=== PATIENT | female | born 1995 | race Two or more races ===

== ENCOUNTER 2016-06-18 21:09 | Emergency (ER) | payer MEDICAID, OTHER ==
[2016-06-18 21:10] VITALS: BMI 32.1
[2016-06-18 21:24] VITALS: TEMP 98.9
[2016-06-18 21:38] LABS: AUTOMATED BASOPHIL 0.1 % (0-2); AUTOMATED EOSINOPHIL 1.2 % (0-5); AUTOMATED LYMPH 9.5 % (17-44); AUTOMATED MONOCYTE 7.2 % (3-10); MPV 8.3 fL (7.4-10.4)
[2016-06-18 21:46] LABS: BLOOD UREA NITROGEN 14 MG/DL (7-17); CALCIUM 9.7 MG/DL (8.4-10.2); CALCULATED OSMOLALITY 269 MOs/Kg (270-290); CHLORIDE 103 mEq/L (98-107); GLUCOSE 100 MG/DL (70-99); SODIUM LEVEL 139 mEq/L (137-146); TOTAL PROTEIN 7.4 G/DL (6.3-8.2)
[2016-06-18 23:08] LABS: LEUKOCYTES/URINE NEG (NEGATIVE); NITRITE/URINE NEG (NEGATIVE); URINE OCCULT BLOOD NEG (NEG/TRACE)
[2016-06-18 23:15] LABS: WBC/URINE 0-2 (0-5)
[2016-06-18] MEDS ORDERED: PROMETHAZINE 25 MG/ML VIAL IV ONE (23:18)
[2016-06-18] MEDS: NS 1,000 ML IV SCH (23:46)
--- NOTE | 2016-06-19 00:06 | EDPRACDOC ---
- General Information Chief Complaint: Flu-Like Symptoms Stated Complaint: NAUSEATED CHILLS VOMITING FEVER HEADACHE Time Seen by Provider: 06/18/16 23:04 Information Source: Patient Mode Of Arrival: Car Home Medications: Home Medications Ibuprofen [Ibuprofen Ib] 400 mg PO .ONCE 06/18/16 Ondansetron HCl [Zofran] 4 mg PO .ONCE 06/18/16 Azithromycin [Zithromax] 250 mg PO DAILY #6 tablet 06/19/16 Promethazine HCl [Phenergan] 25 mg IL Q8H PRN #12 supp 06/19/16 Promethazine [Phenergan] 25 mg PO Q6-8H PRN #20 tab 06/19/16 Allergies/Adverse Reactions: Allergies Allergy/AdvReac Type Severity Reaction Status Date / Time No Known Allergies Allergy Verified 02/18/16 03:58 - History of Present Illness Onset: one day HPI: PT PRESENTS TODAY WITH N/V/D THAT BEGAN LAST NIGHT. PT STATES THAT SHE WENT TO EAT AT A [employer] AND BEGAN WITH THE ABOVE SYMPTOMS SHORTLY AFTERWARDS. THE REST OF THE FAMILY IS ALSO AT HOME WITH SAME S/S AFTER INGESTING THE SAME TACOS. NO OTHER S/S REPORTED. PT STATES SHE WAS TAKING SONS ZOFRAN AT HOME W/ OUT RELIEF. NO BLOOD IN STOOL/VOMIT. Symptoms Occured: Reports: After Eating Duration: Reports: Episodes of Vomiting Emesis: Reports: Food Particles Recent: Reports: Ingestion of spoiled food Pain Quality: Reports: Cramping Pain Severity: Mild Pain Location: Reports: Diffuse History of: Denies: UTI, Ectopic, PID, Urolithiasis Relevant History of: Reports: None Associated Signs & Symptoms: Reports: Nausea, Vomiting, Diarrhea Oral Intake: Decreased Urinary Output: Decreased ED Past Medical History - History Reviewed Yes Nurses notes reviewed and agree except as marked - Patient Medical History Cardiac History: Reports: Hypercholesterolemia GI/ History: Denies: Urinary Tract Infection Psychological History: Denies: Depression Systemic History: Denies: Cancer Additional Past Medical History: CONSTIPATION Surgical History: Denies: Hysterectomy - Family Medical History Reports: Diabetes (mgm) - Social Medical History Smoking Status: Never smoker EDM Review of Systems - Review of Systems ROS Negative Except as Marked: Yes All systems reviewed and were negative except as marked Constitutional: No Symptoms Reported Respiratory: No Symptoms Reported Cardiovascular: No Symptoms Reported Gastrointestinal: Diarrhea, Nausea, Pain, Vomiting Genitourinary: No Symptoms Reported Neurological: No Symptoms Reported Musculoskeletal: No Symptoms Reported Integumentary: No Symptoms Reported - Physical Exam Constitutional: Alert (Awake), No apparent distress Oriented to: Time, Person, Place Last recorded Vital Signs: Last Vital Signs Temp 98.9 F 06/18/16 21:21 Pulse 143 H 06/18/16 21:21 Resp 20 06/18/16 21:21 BP 176/79 06/18/16 21:21 Pulse Ox 97 06/18/16 21:21 Oxygen Pulse Oxygen Saturation 97 O2 Device Room Air Oxygen Flow Rate Fraction of Inspired Oxygen ( FIO2) - HEENT Head: Normal Eye Exam: Normal Oropharynx: Normal Neck: Normal, Denies Pain, Midline - Respiratory/Cardiovascular Respiratory: Normal - CTA Cardiovascular: Tachycardia - GI Auscultation: Decreased Palpation: Normal Tenderness: Diffuse, Moderate - Musculoskeletal Back: Normal Extremities: Normal - Integumentary Skin: Normal Lymphatics: Normal - Neurologic Cerebellar: Normal Mood Description: Normal Thought: Coherent Perception: Normal - Re-evaluation Re-evaluation 1 Re-evaluation Time: :17 PT STATES SHE FEELS BETTER. UNABLE TO OBTAIN STOOL SAMPLE HERE. WILL EMPIRICALLY TREAT. - Results 06/18/16 21:25 06/18/16 21:25 WBC 15.1 xk/uL (3.8-10.8) H 06/18/16 21:25 RBC 4.87 xM/uL (4.20-5.40) 06/18/16 21:25 Hgb 13.2 g/dL (12.0-16.0) 06/18/16 21:25 Hct 39.0 % (36-47) 06/18/16 21:25 MCV 80 fL (81-99) L 06/18/16 21:25 MCH 27.1 pg (27-32) 06/18/16 21:25 MCHC 33.9 g/dl (33-36) 06/18/16 21:25 RDW 12.7 % (11.5-14.5) 06/18/16 21:25 Plt Count 227 xk/uL (130-400) 06/18/16 21:25 MPV 8.3 fL (7.4-10.4) 06/18/16 21:25 Neut % (Auto) 82.0 % (45-76) H 06/18/16 21:25 Lymph % (Auto) 9.5 % (17-44) L 06/18/16 21:25 [place] % (Auto) 7.2 % (3-10) 06/18/16 21:25 Eos % (Auto) 1.2 % (0-5) 06/18/16 21:25 Baso % (Auto) 0.1 % (0-2) 06/18/16 21:25 Absolute Neuts (auto) 12.38 xk/uL (1.7-8.2) H 06/18/16 21:25 Absolute Lymphs (auto) 1.36 xk/uL (0.65-4.75) 06/18/16 21:25 Sodium 139 mEq/L (137-146) 06/18/16 21:25 Potassium 3.9 mEq/L (3.5-5.1) 06/18/16 21:25 Chloride 103 mEq/L (98-107) 06/18/16 21:25 Carbon Dioxide 22 mMOL/L (22-33) 06/18/16 21:25 Anion Gap 18 mEq/L (8-16) H 06/18/16 21:25 BUN 14 MG/DL (7-17) 06/18/16 21:25 Creatinine 0.40 MG/DL (0.52-1.04) L 06/18/16 21:25 Estimated GFR (MDRD) > 60 mL/min (>=60) 06/18/16 21:25 Glucose 100 MG/DL (70-99) H 06/18/16 21:25 Calculated Osmolality 269 MOs/Kg (270-290) L 06/18/16 21:25 Calcium 9.7 MG/DL (8.4-10.2) 06/18/16 21:25 Total Bilirubin 0.7 MG/DL (0.2-1.3) 06/18/16 21:25 AST 26 IU/L (14-36) 06/18/16 21:25 ALT 45 IU/L (9-52) 06/18/16 21:25 Alkaline Phosphatase 116 IU/L (38-126) 06/18/16 21:25 Total Protein 7.4 G/DL (6.3-8.2) 06/18/16 21:25 Albumin 4.1 G/DL (3.5-5.0) 06/18/16 21:25 Lipase 80 U/L (23-300) 06/18/16 21:25 Urine Color Yellow 06/18/16 21:25 Urine Clarity Hazy 06/18/16 21:25 Urine pH 6.0 (5.0-8.0) 06/18/16 21:25 Ur Specific [place] 1.010 06/18/16 21:25 Urine Protein 1+ (NEG/TRACE) H 06/18/16 21:25 Urine Glucose (UA) Neg (NEGATIVE) 06/18/16 21:25 Urine Ketones 1+ (NEGATIVE) H 06/18/16 21:25 Urine Occult Blood Neg (NEG/TRACE) 06/18/16 21:25 Urine Nitrite Neg (NEGATIVE) 06/18/16 21:25 Urine Bilirubin Neg (NEGATIVE) 06/18/16 21:25 Urine Urobilinogen 0.2 MG/DL (0-1) 06/18/16 21:25 Ur Leukocyte Esterase Neg (NEGATIVE) 06/18/16 21:25 Urine WBC 0-2 (0-5) 06/18/16 21:25 Ur Epithelial Cells 3+ 06/18/16 21:25 Urine Bacteria Few (NEG/FEW) 06/18/16 21:25 Urine Mucus Occ (NEG/OCC) 06/18/16 21:25 Urine Test Neg (NEGATIVE) 06/18/16 21:25 Microbiology 06/18/16 23:15 Influenza Type A Antigen Screen - Final N/P - Naso/Pharyngeal NEGATIVE Please note: A NEGATIVE result does not exclude an influenza virus infection. It is a presumptive result and, if required, confirmation should be done using either a virus culture or an FDA-cleared influenza A&B molecular assay. ("NORMAL" value = "NEGATIVE".) Influenza Type B Antigen Screen - Final NEGATIVE Please note: A NEGATIVE result does not exclude an influenza virus infection. It is a presumptive result and, if required, confirmation should be done using either a virus culture or an FDA-cleared influenza A&B molecular assay. ("NORMAL" value = "NEGATIVE".) Lab Results 06/18/16 06/18/16 06/18/16 21:25 21:25 21:25 WBC 15.1 H RBC 4.87 Hgb 13.2 Hct 39.0 MCV 80 L MCH 27.1 MCHC 33.9 RDW 12.7 Plt Count 227 MPV 8.3 Neut % (Auto) 82.0 H Lymph % (Auto) 9.5 L [place] % (Auto) 7.2 Eos % (Auto) 1.2 Baso % (Auto) 0.1 Absolute Neuts (auto) 12.38 H Absolute Lymphs (auto) 1.36 Sodium Potassium Chloride Carbon Dioxide Anion Gap BUN Creatinine Estimated GFR (MDRD) Glucose Calculated Osmolality Calcium Total Bilirubin AST ALT Alkaline Phosphatase Total Protein Albumin Lipase Urine Color Yellow Urine Clarity Hazy Urine pH 6.0 Ur Specific [place] 1.010 Urine Protein 1+ H Urine Glucose (UA) Neg Urine Ketones 1+ H Urine Occult Blood Neg Urine Nitrite Neg Urine Bilirubin Neg Urine Urobilinogen 0.2 Ur Leukocyte Esterase Neg Urine WBC 0-2 Ur Epithelial Cells 3+ Urine Bacteria Few Urine Mucus Occ Urine Test Neg 06/18/16 21:25 WBC RBC Hgb Hct MCV MCH MCHC RDW Plt Count MPV Neut % (Auto) Lymph % (Auto) [place] % (Auto) Eos % (Auto) Baso % (Auto) Absolute Neuts (auto) Absolute Lymphs (auto) Sodium 139 Potassium 3.9 Chloride 103 Carbon Dioxide 22 Anion Gap 18 H BUN 14 Creatinine 0.40 L Estimated GFR (MDRD) > 60 Glucose 100 H Calculated Osmolality 269 L Calcium 9.7 Total Bilirubin 0.7 AST 26 ALT 45 Alkaline Phosphatase 116 Total Protein 7.4 Albumin 4.1 Lipase 80 Urine Color Urine Clarity Urine pH Ur Specific [place] Urine Protein Urine Glucose (UA) Urine Ketones Urine Occult Blood Urine Nitrite Urine Bilirubin Urine Urobilinogen Ur Leukocyte Esterase Urine WBC Ur Epithelial Cells Urine Bacteria Urine Mucus Urine Test Decision Time to Discharge: 01:18 - Departure Disposition: Home Condition: Improved Final Diagnosis: Nausea vomiting and diarrhea Instructions: Acute Nausea and Vomiting (ED) Education/Counseling Given To: Patient Education/Counseling Given Regarding: Diagnosis, Treatment, Follow Up Referrals: Kizzy Perez MD [Primary Care Provider] - One Week Prescriptions: Azithromycin [Zithromax] 250 mg PO DAILY #6 tablet Promethazine [Phenergan] 25 mg PO Q6-8H PRN #20 tab PRN Reason: Nausea/Vomiting Promethazine HCl [Phenergan] 25 mg IL Q8H PRN #12 supp PRN Reason: Nausea/Vomiting Additional Instructions: Drink sips of Gatorade every 2-3 minutes while awake. Do NOT drink large volumes of fluid at once. If you vomit, take the nausea-vomiting medicine prescribed, wait ~ 30 minutes, and restart the sipping process. Return to the Emergency Department if you think you are getting dehydrated, have persistent abdominal pain that is unrelenting, have worse or different symptoms, or any concerns.
[2016-06-19] MEDS: NS 1,000 ML IV SCH (01:26)
[2016-06-19 01:28] VITALS: BP 123/78; PULSE 104
== END 2016-06-19 01:38 | disposition home or self-care (01) ==
LOC: ED 21:09
DX: R11.2 Nausea with vomiting, unspecified (principal); R19.7 Diarrhea, unspecified
CPT/HCPCS: 36415; 80053; 81001; 81025; 83690; 85025; 87804; 96361; 96374; 99283; J2550